=== PATIENT | female | born 1990 | race American Indian/Alaskan Native ===

== ENCOUNTER 2016-10-19 19:57 | Emergency (ER) | payer SELFPAY ==
[2016-10-19 20:10] VITALS: BP 137/93
[2016-10-19] MEDS ORDERED: LORazepam 1 MG Tab PO ONE (21:05)
[2016-10-19] MEDS ORDERED: Acetaminophen 500 MG Tab PO ONE (21:12)
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
== END 2016-10-20 00:23 | disposition home or self-care (01) ==
LOC: JP.ED 19:57
DX: F32.9 Major depressive disorder, single episode, unspecified (principal); F41.9 Anxiety disorder, unspecified; F17.210 Nicotine dependence, cigarettes, uncomplicated; Z88.1 Allergy status to other antibiotic agents; Z98.51 Tubal ligation status
CPT/HCPCS: 80305; 81025; 99283; 99285; A9270